=== PATIENT | male | born 1950 | race Hispanic/Latino ===

== ENCOUNTER 2019-05-30 14:31 | Outpatient (CLI) | payer OTHER ==
--- NOTE | 2019-05-30 15:37 | BD ---
DEXA DENSITOMETRY: INDICATIONS: A 68-year-old male for osteoporosis screening. FINDINGS: LUMBAR SPINE BMD (g/cm2) T-SCORE L1 1.062 -0.1 L2 1.189 0.9 L3 1.186 0.8 L4 1.315 2.0 TOTAL 1.193 0.9 FEMORAL NECK 0.703 -1.7 TOTAL 0.938 -0.6 IMPRESSION: 1. The bone mineral density of the lumbar spine is within the normal range. 2. The bone mineral density of the femoral neck indicates osteopenia. TEN YEAR FRACTURE RISK Major osteoporotic fracture: 6.9% Hip fracture: 1.4% POS: OFF
== END 2019-05-30 14:32 | disposition home or self-care (01) ==
LOC: BICMAMMO 14:31
PROVIDERS: ATTEND Family Medicine
DX: Z13.820 Encounter for screening for osteoporosis (principal); M85.89 Other specified disorders of bone density and structure, multiple sites
CPT/HCPCS: 77080